=== PATIENT | female | born 1960 | race Caucasian/White ===

== ENCOUNTER → 2017-03-18 | Outpatient (CLI) | payer BC ==
[~2017-03-18] MED LIST: AGM875 PO; MOME50SP5; OPTIRAY 320 IV PRN; OXYC-57 PO; SERT50TA; SYN100 PO
--- NOTE | 2017-03-18 10:03 | DIAGNOSTIC IMAGING REPORT ---
SOFT TISSUE NECK COMBO CLINICAL HISTORY: 56 years-old Female presenting with SJOGRENS,PAROTID STONES. TECHNIQUE: Multidetector CT of the neck was performed before and after the administration of intravenous contrast. IV contrast: 94 mL of Optiray 320. A dose lowering technique was used consistent with the principles of ALARA (as low as reasonably achievable). COMPARISON: Ultrasound from 07/23/[address] of the sinuses from 2008. CT DOSE (mGy.cm): The estimated cumulative dose is 720.86 mGy.cm. FINDINGS: [employer] topogram: Unremarkable. Limited intracranial evaluation is grossly normal on precontrast imaging. Paranasal sinuses and mastoid air cells clear. Osseous structures normal. Amalgam results in regional streak artifact slightly degrading evaluation of the oral cavity. Postcontrast imaging demonstrates patent vasculature including limited evaluation of the intracranial vasculature. Prominent 1.7 cm nodule in the left lobe of the thyroid. Numerous small collateral vessels surrounding the thyroid gland. Orbits are normal. Some mandibular glands and parotid glands grossly normal. No evidence of a mass or cystic change. No evidence of an obstructing calculus. Glands are not severely atrophic. No lymphadenopathy. No suspicious nodular enhancement. Lung apices are clear. Cervical spine with mild degenerative change. IMPRESSION: No significant abnormality of the salivary glands. Electronically signed by: Leo See M.D. 03/18/2017 10:01 AM Dictated Date/Time: 03/18/2017 9:53 AM
== END | disposition home or self-care (01) ==
LOC: C.CTS 09:27
PROVIDERS: ATTEND Dentist Oral and Maxillofacial Pathology
DX: I49.9 Cardiac arrhythmia, unspecified (principal)